=== PATIENT | male | born 1960 | race Caucasian/White ===

== ENCOUNTER 2018-02-06 11:09 | Emergency (ER) | payer BC ==
[~2018-02-06] VITALS: Ht 170.2 cm; Wt 77.3 kg
[~2018-02-06 11:09] MED LIST: PREVACID 15MG15 M1 PO
[2018-02-06 11:12] VITALS: BP 167/86; TEMP 98
[2018-02-06] MEDS ORDERED: ADVIL200 MG PO (11:21)
[2018-02-06 12:44] VITALS: PULSE 58
== END 2018-02-06 12:44 | disposition home or self-care (01) ==
LOC: COL.ER 11:09
DX: S63.266A Dislocation of metacarpophalangeal joint of right little finger, initial encounter (principal); K21.9 Gastro-esophageal reflux disease without esophagitis; F12.90 Cannabis use, unspecified, uncomplicated; Z87.891 Personal history of nicotine dependence; W10.9XXA Fall (on) (from) unspecified stairs and steps, initial encounter